=== PATIENT | female | born 1950 | race Caucasian/White ===

== ENCOUNTER 2016-06-11 10:37 | Outpatient (CLI) | payer MEDICARE, OTHER ==
[2016-06-11 21:10] LABS: Bilirubin Negative (Negative); Blood, Urine Large (Negative); Clarity Clear (Clear); Glucose, Urine (Dipstick) Negative (Negative); Leukocyte Negative (Negative); Nitrite Negative (Negative); Protein, Urine (Dipstick) Negative (Neg-Trace); Urobilinogen 0.2 mg/dL (0.2-1.0)
[2016-06-11 21:25] LABS: Bacteria/HPF None Seen HPF (None Seen); Squamous Epithelial None Seen HPF (0-3); WBC/HPF None Seen HPF (0-3)
== END 2016-06-11 10:38 | disposition home or self-care (01) ==
LOC: BURLAB 10:37
PROVIDERS: ATTEND Urology
DX: R31.29 Other microscopic hematuria (principal)
CPT/HCPCS: 81001; 87086; 88112

== ENCOUNTER 2016-06-14 13:22 | Outpatient (CLI) | payer MEDICARE, OTHER ==
[2016-06-14 14:16] LABS: ALT (SGPT) 16 U/L (0-55); AST (SGOT) 21 U/L (5-34); Alkaline Phosphatase 86 U/L (40-150); Bilirubin, Direct 0.2 mg/dL (0.1-0.3); Bilirubin, Total 0.3 mg/dL (0.2-1.2); Cardiac Risk 4.3 (Less than 4.5); Cholesterol 239 mg/dL (< 200 Desired); HDL Cholesterol 55 mg/dL (>60 Neg Risk); LDL Cholesterol, Calculated 169 mg/dL; Protein, Total 6.5 g/dL (5.8-8.1); Triglycerides 73 mg/dL (Less than 150)
== END 2016-06-14 13:23 | disposition home or self-care (01) ==
LOC: HPCALD 13:22
PROVIDERS: ATTEND Family Medicine
DX: I10 Essential (primary) hypertension (principal); E03.9 Hypothyroidism, unspecified
CPT/HCPCS: 36415; 80061; 80076; 84443

== ENCOUNTER 2017-04-23 12:53 | Outpatient (CLI) | payer MEDICARE ==
--- NOTE | 2017-04-23 19:06 | RAD ---
CHEST TWO VIEWS: Date: 04-23-17 Comparison: 09-14-14 from [facility]. FINDINGS: No lobar infiltrate or effusion was seen. There is some mild increased in the interstitial lung nicolasa ngs in the lower portions of the lungs bilaterally. Looking at the prior study, I am not sure that th e appearance is really any different when one allows for slight differences in positioning. The heart size remains normal. The trachea is midline. The mediastinum is unremarkable. IMPRESSION: Mild prominence of lower lobe markings which is not substantially different than before. If symptoms remain suggestive of pneumonia, a follow up film may be needed to get a second look at the left lower chest in particular. POS: HOME
== END 2017-04-23 12:54 | disposition home or self-care (01) ==
LOC: BURRAD 12:53
PROVIDERS: ATTEND Family Medicine
DX: J20.8 Acute bronchitis due to other specified organisms (principal); J98.4 Other disorders of lung
CPT/HCPCS: 71046

== ENCOUNTER 2017-05-02 11:47 | Outpatient (CLI) | payer MEDICARE, OTHER | END 2017-05-02 11:48 | disposition home or self-care (01) | LOC: BUREKG 11:47 | PROVIDERS: ATTEND Family Medicine | DX: R07.89 Other chest pain (principal) | CPT/HCPCS: 93005; 93010 ==

== ENCOUNTER 2020-01-24 12:02 | Emergency (ER) | payer MEDICARE, OTHER ==
[2020-01-24] MEDS ORDERED: Lidocaine 2% PF 5 ML VIAL ONE (13:02)
[2020-01-24] MEDS ORDERED: Bacitracin 1 PK ONE (13:02)
--- NOTE | 2020-01-24 13:44 | RAD ---
LEFT FIFTH DIGIT THREE VIEWS: 01/24/20 No major fracture was seen. A laceration is seen at the distal portion of the finger. There are no la rge opaque foreign bodies. IMPRESSION: No acute bony findings. POS: HOME
== END 2020-01-24 13:40 | disposition home or self-care (01) ==
LOC: BURERS 12:02
DX: S61.217A Laceration without foreign body of left little finger without damage to nail, initial encounter (principal); I10 Essential (primary) hypertension; E78.5 Hyperlipidemia, unspecified; J43.9 Emphysema, unspecified; F17.210 Nicotine dependence, cigarettes, uncomplicated; W23.0XXA Caught, crushed, jammed, or pinched between moving objects, initial encounter
CPT/HCPCS: 12002; J2001

== ENCOUNTER 2021-05-25 09:30 | Emergency (ER) | payer MEDICARE, OTHER ==
[2021-05-25] MEDS ORDERED: Tetracaine 0.5% PF 4 ML BOT ONE (09:48)
[2021-05-25] MEDS ORDERED: Fluorescein Opthalmic Strip ONE (09:48)
== END 2021-05-25 10:03 | disposition home or self-care (01) ==
LOC: BURERS 09:30
DX: S05.01XA Injury of conjunctiva and corneal abrasion without foreign body, right eye, initial encounter (principal); E78.5 Hyperlipidemia, unspecified; I10 Essential (primary) hypertension; J44.9 Chronic obstructive pulmonary disease, unspecified; F17.210 Nicotine dependence, cigarettes, uncomplicated; X58.XXXA Exposure to other specified factors, initial encounter
CPT/HCPCS: 99282

== ENCOUNTER 2021-07-20 10:04 | Emergency (ER) | payer MEDICARE, OTHER ==
[2021-07-20] MEDS ORDERED: Dexamethasone 10 MG/ML VIAL ONE (10:59)
[2021-07-20] MEDS ORDERED: Dexamethasone 4 mg/ml Vial ONE (10:59)
== END 2021-07-20 11:28 | disposition home or self-care (01) ==
LOC: BURERS 10:04
DX: T63.461A Toxic effect of venom of wasps, accidental (unintentional), initial encounter (principal); L03.113 Cellulitis of right upper limb; I10 Essential (primary) hypertension; J43.9 Emphysema, unspecified; E78.5 Hyperlipidemia, unspecified; E78.00 Pure hypercholesterolemia, unspecified; F17.210 Nicotine dependence, cigarettes, uncomplicated; Z79.890 Hormone replacement therapy; Z79.899 Other long term (current) drug therapy
CPT/HCPCS: 96372; 99283; J1100

== ENCOUNTER 2023-04-19 13:57 | Outpatient (CLI) | payer MEDICARE | END 2023-04-19 13:58 | disposition home or self-care (01) | LOC: BURRAD 13:57 | PROVIDERS: ATTEND Family Medicine | DX: M17.0 Bilateral primary osteoarthritis of knee (principal) ==